=== PATIENT | male | born 1980 | race Caucasian/White ===

== ENCOUNTER 2016-09-21 04:47 | Emergency (ER) | payer MEDICAID ==
[~2016-09-21] VITALS: Ht 180.3 cm; Wt 95.0 kg
[2016-09-21 04:53] VITALS: Ht 180.3 cm; Wt 95.0 kg
--- NOTE | 2016-09-21 05:35 | ERA ---
ER Documentation Chief Complaint Date/Time DATE: 09/21/16 TIME: 05:34 Chief Complaint cough congestion with fever for past 2 days HPI The patient is 36-year-old male, presenting to the ER because of cough, nasal congestion, bilateral ear pain, itchy throat for 1 week. He denies facial pain , neck pain, chest pain, dyspnea, abdominal pain, vomiting, diarrhea, dysuria. He does not smoke, drink Past medical history: None Past surgical history: Appendectomy ROS All systems reviewed and are negative except as per history of present illness. Medications Home Meds Active Scripts Azithromycin* (Zithromax*) 250 Mg Tablet, 250 MG PO .ZPACK DIRECTED, #6 TAB TAKE 500 MG (2 TABS) THE FIRST DAY THEN 250 MG (1 TAB) DAYS 2-5 Prov:RIAZ BERKOWITZ MD 09/21/16 Ibuprofen* (Motrin*) 600 Mg Tab, 600 MG PO Q6H Y for PAIN AND OR ELEVATED TEMP, #30 TAB Prov:RIAZ BERKOWITZ MD 09/21/16 Guaifenesin-Codeine Phosphate* (Robitussin* AC) 5 Ml Syrup, 10 ML PO Q6H Y for COUGH, #120 ML Prov:RIAZ BERKOWITZ MD 09/21/16 Allergies Allergies: Coded Allergies: No Known Allergy (Unverified , 09/21/16) PMhx/Soc Hx Alcohol Use: No Hx Substance Use: No Hx Tobacco Use: No Smoking Status: Never smoker Physical Exam Vitals Vital Signs Date Time Temp Pulse Resp B/P Pulse Ox O2 Delivery O2 Flow Rate FiO2 09/21/16 04:53 100.7 111 18 148/85 97 Physical Exam Const: No acute distress. Head: Atraumatic. Eyes: Normal Conjunctiva. ENT: Normal External Ears, Nose and Mouth. Bilateral tympanic membrane bulging and erythematous. Oropharynx is erythematous, no exudate Neck: Full range of motion. No meningismus. Resp: Clear to auscultation bilaterally. Cardio: Regular rate and rhythm, no murmurs. Abd: Soft, non distended, normal bowel sounds, non tender. Skin: No petechiae or rashes. Back: No midline or flank tenderness. Ext: No cyanosis, or edema. Neur: Awake and alert. No focal deficit Psych: Normal Mood and Affect. Results 24 hrs Current Medications Medications (Trade) Dose Ordered Sig/Meghan Route PRN Reason Start Time Stop Time Status Last Admin Dose Admin Ibuprofen (Motrin) 600 mg ONCE ONCE PO 09/21/16 06:00 09/21/16 06:01 Procedures/MDM MEDICAL MAKING DECISION: The patient is a 36-year-old male, presenting with acute bronchitis, acute bilateral otitis media. He was treated with Motrin for pain with good response. The differential diagnoses considered include but are not limited to pneumonia, viral syndrome, influenza, pneumothorax, viral pneumonitis Departure Diagnosis: Primary Impression: Otitis media Additional Impression: Bronchitis Condition: Good Comments He was discharged with Zithromax, Phenergan with codeine, Motrin I discussed the findings with the patient. I advised the patient to follow-up with the primary physician in about 1-2 days, sooner if needed and return if any concern. The patient's blood pressure was elevated (>120/80) but appears stable without evidence of hypertension emergency or urgency. The patient was counseled about the risks of hypertension and urged to pursue outpatient monitoring and therapy within a week with their primary care physician. RIAZ BERKOWITZ MD Sep 21, 2016 05:35
[2016-09-21] MEDS ORDERED: UDROBAC PO (05:48)
[2016-09-21] MEDS ORDERED: AZIT250T94 PO (05:48)
[2016-09-21] MEDS ORDERED: IBUP-1542 PO (05:48)
[2016-09-21] MEDS ORDERED: IBUPROFEN 600 MG TAB PO ONE (06:00)
== END 2016-09-21 06:18 | disposition home or self-care (01) ==
LOC: E/R 04:47
DX: H66.93 Otitis media, unspecified, bilateral (principal); J20.9 Acute bronchitis, unspecified
CPT/HCPCS: Z7502; Z7610; 99283